=== PATIENT | female | born 2000 | race Caucasian/White ===

== ENCOUNTER 2019-04-23 18:27 | Emergency (ER) | payer OTHER ==
[~2019-04-23] VITALS: Ht 157.5 cm; Wt 68.2 kg
[2019-04-23 18:29] VITALS: TEMP 99.5
[2019-04-23] MEDS ORDERED: PREDNISONE20 MG PO (19:00)
[2019-04-23] MEDS ORDERED: EPIPEN 2-PAK1 MG/ML IM (19:11)
[2019-04-23 19:57] VITALS: BP 134/82; PULSE 92
== END 2019-04-23 19:56 | disposition home or self-care (01) ==
LOC: COL.ER 18:27
DX: T78.1XXA Other adverse food reactions, not elsewhere classified, initial encounter (principal)
CPT/HCPCS: J0171; J1200; J7030; J7512

== ENCOUNTER 2020-07-25 18:03 | Emergency (ER) | payer OTHER ==
[~2020-07-25] VITALS: Ht 157.5 cm; Wt 68.2 kg
[~2020-07-25 18:03] MED LIST: EPIPEN 2-PAK1 MG/ML IM; PREDNISONE20 MG PO
[2020-07-25 18:25] VITALS: TEMP 100.3
[2020-07-25 19:09] VITALS: BP 110/74; PULSE 74
== END 2020-07-25 19:09 | disposition home or self-care (01) ==
LOC: COL.ER 18:03
DX: L50.9 Urticaria, unspecified (principal); J45.909 Unspecified asthma, uncomplicated; Z79.52 Long term (current) use of systemic steroids
CPT/HCPCS: J3301